=== PATIENT | male | born 1975 | race American Indian/Alaskan Native ===

== ENCOUNTER 2017-08-15 10:01 | Emergency (ER) | payer OTHER ==
[2017-08-15] MEDS ORDERED: ASPIRIN PO ONE (10:12)
[2017-08-15 10:52] LABS: Basophils # (Auto) 0.1 K/mm3 (0.0-0.1); Eosinophils # (Auto) 0.1 K/mm3 (0.0-0.4); Eosinophils % (Auto) 1.1 % (0.0-4.3); Hematocrit 46.1 % (35.5-45.6); Hemoglobin 15.4 gm/dl (11.8-15.2); Lymphocytes # (Auto) 2.8 K/mm3 (1.2-5.4); Lymphocytes % (Auto) 36.7 % (13.4-35.0); Mean Corpuscular HGB Conc 33 % (32-34); Mean Corpuscular Hemoglobin 28 pg (28-32); Mean Corpuscular Volume 85 fl (84-94); Monocytes # (Auto) 0.7 K/mm3 (0.0-0.8); Monocytes % (Auto) 8.9 % (0.0-7.3); Platelet Count 250 K/mm3 (140-440); Red Blood Count 5.41 M/mm3 (3.65-5.03); Red Cell Distribution Width 13.3 % (13.2-15.2)
[2017-08-15 11:09] LABS: BUN/Creatinine Ratio 14; Blood Urea Nitrogen 10 mg/dL (9-20); Hemolysis Index 24
[2017-08-15] MEDS ORDERED: ASPIRIN ONE (13:24)
[2017-08-15 17:33] VITALS: BP 126/75
--- NOTE | 2017-08-15 17:54 | Emergency Department Report ---
ED Chest Pain HPI - General Chief Complaint: Chest Pain Stated Complaint: CHEST PAIN/NUMBNESS IN ARMS Time Seen by Provider: 08/15/17 17:24 Source: patient Mode of arrival: Ambulatory Limitations: No Limitations - History of Present Illness Initial Comments: 41-year-old male type II diabetic here with complaint of chest pain ,blurred vision, and left arm numbness. Mr. Mims symptoms began 2 days ago and are intermittent. The chest pain is left side is chest pain at the apex of his heart. It usually lasts 3-4 hours and then goes away. At this time he has no chest pain. Mr. Mims was diagnosed with type 2 diabetes 3 months ago and was prescribed metformin. He has not taken any of the metformin. His current fingerstick is 305. He is a cigarette smoker. MD Complaint: chest pain -: days(s) (2 days) Onset: during rest Pain Radiation: LUE Severity: moderate Severity scale (0 -10): 9 Quality: tightness, heaviness Consistency: intermittent (lasting 3-4 hours) Improves With: rest Other Symptoms: other (left arm numbness) Treatments Prior to Arrival: none Aspirin use within the Past 7 Days: (0) No - Related Data On Oral Contraceptives: No Home Medications Medication Instructions Recorded Confirmed Last Taken No Known Home Medications [No 08/15/17 08/15/17 Unknown Reported Home Medications] Allergies Allergy/AdvReac Type Severity Reaction Status Date / Time No Known Allergies Allergy Unverified 07/08/13 12:01 Heart Score - HEART Score History: Slightly suspicious EKG: Normal Age: < 45 Risk factors: 1-2 risk factors Troponin: < normal limit HEART Score: 1 ED Review of Systems ROS: Stated complaint: CHEST PAIN/NUMBNESS IN ARMS Other details as noted in HPI Constitutional: denies: chills, fever Eyes: denies: eye pain, eye discharge, vision change ENT: denies: ear pain, throat pain Respiratory: denies: cough, shortness of breath, wheezing Cardiovascular: denies: palpitations Endocrine: no symptoms reported Gastrointestinal: denies: abdominal pain, nausea, diarrhea Genitourinary: denies: urgency, dysuria Musculoskeletal: denies: back pain, joint swelling, arthralgia Skin: denies: rash, lesions Neurological: numbness (left arm), other (blurred vision). denies: headache, weakness, paresthesias Psychiatric: denies: anxiety, depression Hematological/Lymphatic: denies: easy bleeding, easy bruising ED Past Medical Hx - Past Medical History Previous Medical History?: Yes Hx Diabetes: Yes Additional medical history: tobacco abuse - Surgical History Past Surgical History?: No - Social History Smoking Status: Current Every Day Smoker Substance Use Type: None - Medications Home Medications: Home Medications Medication Instructions Recorded Confirmed Last Taken Type No Known Home Medications [No 08/15/17 08/15/17 Unknown History Reported Home Medications] ED Physical Exam - General Limitations: No Limitations General appearance: alert, in no apparent distress - Head Head exam: Present: atraumatic, normocephalic - Eye Eye exam: Present: normal appearance, EOMI - ENT ENT exam: Present: mucous membranes moist - Neck Neck exam: Present: normal inspection, full ROM - Respiratory Respiratory exam: Present: normal lung sounds bilaterally. Absent: respiratory distress, wheezes, rales, rhonchi - Cardiovascular Cardiovascular Exam: Present: regular rate, normal rhythm, normal heart sounds. Absent: systolic murmur, diastolic murmur, rubs, gallop - GI/Abdominal GI/Abdominal exam: Present: soft, normal bowel sounds - Rectal Rectal exam: Present: deferred - Extremities Exam Extremities exam: Present: normal inspection, full ROM, normal capillary refill - Back Exam Back exam: Present: normal inspection, full ROM - Neurological Exam Neurological exam: Present: alert, oriented X3, CN II-XII intact, other (large centripital fat) - Psychiatric Psychiatric exam: Present: normal affect, normal mood - Skin Skin exam: Present: warm, dry, intact, normal color. Absent: rash ED Course Vital Signs 08/15/17 08/15/17 08/15/17 10:10 13:15 13:27 Temperature 97.8 F Pulse Rate 83 78 78 Respiratory 16 16 Rate Blood Pressure 121/71 O2 Sat by Pulse 100 Oximetry 08/15/17 08/15/17 08/15/17 13:30 14:00 14:31 Temperature Pulse Rate 74 73 78 Respiratory 23 26 H 13 Rate Blood Pressure 117/81 121/73 121/73 O2 Sat by Pulse 100 100 100 Oximetry 08/15/17 08/15/17 08/15/17 15:01 15:30 16:00 Temperature Pulse Rate 75 70 68 Respiratory 18 25 H 21 Rate Blood Pressure 121/73 116/72 117/72 O2 Sat by Pulse 96 99 95 Oximetry 08/15/17 08/15/17 08/15/17 16:30 17:00 17:30 Temperature Pulse Rate 63 66 66 Respiratory 23 19 22 Rate Blood Pressure 120/74 127/74 126/75 O2 Sat by Pulse 98 92 97 Oximetry - Reevaluation(s) Reevaluation #1: 08/16/17 03:35 Patient eloped from the department after discussion was made about admitting to the hospital. He left with an IV in his arm and the police was called. ED Medical Decision Making - Lab Data Result diagrams: 08/15/17 10:20 08/15/17 10:20 - EKG Data -: EKG Interpreted by Me EKG shows normal: sinus rhythm, axis, intervals, QRS complexes - EKG Data Interpretation: nonspecific ST-T wave felipe Critical care attestation.: If time is entered above; I have spent that time in minutes in the direct care of this critically ill patient, excluding procedure time. 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
== END 2017-08-15 18:06 | disposition left against medical advice (07) ==
LOC: ED 10:01
DX: R07.9 Chest pain, unspecified (principal); E11.65 Type 2 diabetes mellitus with hyperglycemia; F17.200 Nicotine dependence, unspecified, uncomplicated
CPT/HCPCS: 36415; 80048; 82962; 84484; 85025; 93005; 93010; 99284

== ENCOUNTER 2017-12-27 12:32 | Emergency (ER) | payer OTHER ==
--- NOTE | 2017-12-27 13:14 | Emergency Department Report ---
ED Male HPI - General Chief complaint: Urogenital-Male Stated complaint: GROIN PAIN Time Seen by Provider: 12/27/17 13:09 Source: patient Mode of arrival: Ambulatory Limitations: No Limitations - History of Present Illness Initial comments: Patient is 42 years old male with no significant past medical history presented to the ER complaining of dysuria and urinary frequency. Patient denied any hematuria. Patient said that he is not sexually active. Patient denied any fever or nausea or vomiting. MD Complaint: dysuria -: Gradual Consistency: constant Improves with: urination - Related Data Home Medications Medication Instructions Recorded Confirmed Last Taken No Known Home Medications [No 08/15/17 08/15/17 Unknown Reported Home Medications] Allergies Allergy/AdvReac Type Severity Reaction Status Date / Time No Known Allergies Allergy Unverified 07/08/13 12:01 ED Review of Systems ROS: Stated complaint: GROIN PAIN Other details as noted in HPI Comment: All other systems reviewed and negative Respiratory: denies: cough, orthopnea Cardiovascular: denies: chest pain, palpitations, dyspnea on exertion Genitourinary: urgency, dysuria, frequency. denies: hematuria, discharge, testicular pain, testicular mass, other Musculoskeletal: denies: back pain Neurological: denies: headache, weakness ED Past Medical Hx - Past Medical History Previous Medical History?: Yes Hx Diabetes: Yes (non compliant with meds and BS) Additional medical history: tobacco abuse - Surgical History Past Surgical History?: No - Social History Smoking Status: Current Every Day Smoker Substance Use Type: Prescribed - Medications Home Medications: Home Medications Medication Instructions Recorded Confirmed Last Taken Type No Known Home Medications [No 08/15/17 08/15/17 Unknown History Reported Home Medications] ED Physical Exam - General Limitations: No Limitations General appearance: alert, in no apparent distress - Head Head exam: Present: atraumatic, normocephalic, normal inspection - Eye Eye exam: Present: normal appearance - ENT ENT exam: Present: normal exam - Neck Neck exam: Present: normal inspection, full ROM. Absent: tenderness, meningismus - Respiratory Respiratory exam: Present: normal lung sounds bilaterally. Absent: chest wall tenderness - Cardiovascular Cardiovascular Exam: Present: regular rate, normal rhythm, normal heart sounds - GI/Abdominal GI/Abdominal exam: Present: soft, normal bowel sounds. Absent: distended, tenderness, guarding, rebound, rigid, organomegaly, mass, bruit, pulsatile mass , hernia - Extremities Exam Extremities exam: Present: normal inspection, full ROM, normal capillary refill - Back Exam Back exam: Present: normal inspection, full ROM. Absent: CVA tenderness (L) - Neurological Exam Neurological exam: Present: alert, oriented X3, CN II-XII intact, normal gait - Skin Skin exam: Present: warm, intact, normal color ED Course Vital Signs 12/27/17 12:44 Temperature 98.8 F Pulse Rate 87 Respiratory 20 Rate Blood Pressure 163/98 O2 Sat by Pulse 98 Oximetry Critical care attestation.: If time is entered above; I have spent that time in minutes in the direct care of this critically ill patient, excluding procedure time. ED Disposition Clinical Impression: Prostatitis Disposition: DC-01 TO HOME OR SELFCARE Is pt being admited?: No Condition: Stable Instructions: Prostatitis (ED)
[2017-12-27 13:39] LABS: Bilirubin,Urine NEG (Negative); Blood,Urine NEG (Negative); Color,Urine Yellow (Yellow); Mucus,Urine FEW /HPF; Urobilinogen,Urine < 2.0 mg/dL (<2.0)
[2017-12-27 14:20] VITALS: BP 160/90
== END 2017-12-27 14:19 | disposition home or self-care (01) ==
LOC: ED 12:32
DX: N41.9 Inflammatory disease of prostate, unspecified (principal); E11.9 Type 2 diabetes mellitus without complications; F17.200 Nicotine dependence, unspecified, uncomplicated
CPT/HCPCS: 81001; 99283

== ENCOUNTER 2018-01-19 10:29 | Emergency (ER) | payer OTHER ==
--- NOTE | 2018-01-19 11:34 | XRay Report ---
RIGHT SHOULDER, 3 VIEWS: HISTORY: right shoulder pain. Normal bone mineralization. [id number] osteoarthritic changes identified at the acromioclavicular joint and glenohumeral joint. There is no evidence for acute injury, fracture, dislocation or ligamentous injury. The humeral head is slightly low lying with respect to the glenoid which could represent a right shoulder effusion. IMPRESSION: No evidence for acute injury. Osteoarthritic changes. Questionable joint effusion.
--- NOTE | 2018-01-19 12:31 | Emergency Department Report ---
ED General Adult HPI - General Chief complaint: Extremity Injury, Upper Stated complaint: RIGHT SHOULDER PAIN AND EYES BLURRY Time Seen by Provider: 01/19/18 12:18 Source: patient, family Mode of arrival: Ambulatory Limitations: No Limitations - History of Present Illness Initial comments: Mr. Mims is a 42 yo who presents with 2 concerns. He has a right shoulder pain for 1 week. 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 He also has had mild intermittent blurry vision which he attributes to hypoglycemia. He states that he takes metformin which is not managing his diabetes any longer. - Related Data Previous Rx's Medication Instructions Recorded Last Taken Type Ciprofloxacin HCl [Ciprofloxacin 500 mg PO Q12H #20 tab 12/27/17 Unknown Rx TAB] Naproxen [Naprosyn] 500 mg PO BID #14 tablet 12/27/17 Unknown Rx Ibuprofen 400 mg PO QID 5 Days #20 tablet 01/19/18 Unknown Rx Allergies Allergy/AdvReac Type Severity Reaction Status Date / Time No Known Allergies Allergy Unverified 07/08/13 12:01 ED Review of Systems ROS: Stated complaint: RIGHT SHOULDER PAIN AND EYES BLURRY Other details as noted in HPI Comment: All other systems reviewed and negative Constitutional: denies: fever, malaise Respiratory: denies: cough Cardiovascular: denies: chest pain ED Past Medical Hx - Past Medical History Hx Diabetes: Yes (non compliant with meds and BS) Additional medical history: tobacco abuse - Surgical History Past Surgical History?: No - Social History Smoking Status: Current Every Day Smoker Substance Use Type: None - Medications Home Medications: Home Medications Medication Instructions Recorded Confirmed Last Taken Type Ciprofloxacin HCl [Ciprofloxacin 500 mg PO Q12H #20 tab 12/27/17 Unknown Rx TAB] Naproxen [Naprosyn] 500 mg PO BID #14 tablet 12/27/17 Unknown Rx Ibuprofen 400 mg PO QID 5 Days #20 tablet 01/19/18 Unknown Rx ED Physical Exam - General Limitations: No Limitations General appearance: alert, in no apparent distress - Head Head exam: Present: atraumatic, normocephalic - Eye Eye exam: Present: normal appearance. Absent: scleral icterus, conjunctival injection Pupils: Present: normal accommodation - ENT ENT exam: Present: normal exam - Neck Neck exam: Present: normal inspection - Respiratory Respiratory exam: Present: normal lung sounds bilaterally. Absent: respiratory distress, wheezes, rales, rhonchi - Cardiovascular Cardiovascular Exam: Present: regular rate, normal rhythm, normal heart sounds. Absent: bradycardia, tachycardia - GI/Abdominal GI/Abdominal exam: Present: soft. Absent: distended, tenderness, guarding, rebound - Extremities Exam Extremities exam: Present: full ROM. Absent: tenderness - Neurological Exam Neurological exam: Present: alert, oriented X3 - Psychiatric Psychiatric exam: Present: normal affect, normal mood - Skin Skin exam: Present: warm, dry, intact, normal color - Other Other exam information: Right shoulder: No tenderness no warmth full range of motion ED Course Vital Signs 01/19/18 10:56 Temperature 98.8 F Pulse Rate 97 H Respiratory 20 Rate Blood Pressure 156/100 O2 Sat by Pulse 100 Oximetry ED Medical Decision Making - Medical Decision Making 1. right shoulder osteoarthritis presents according to radiology report of shoulder radiograph rx: ibuprofen 2. 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 ED Disposition Clinical Impression: Osteoarthritis of right shoulder, Blurry vision, bilateral, Diabetes mellitus Disposition: DC-01 TO HOME OR SELFCARE Is pt being admited?: No Does the pt Need Aspirin: No Condition: Stable Instructions: Osteoarthritis (ED), Blurred Vision (ED) Prescriptions: Ibuprofen 400 mg PO QID 5 Days #20 tablet Forms: Work/School Release Form(ED) Time of Disposition: 12:33
[2018-01-19 12:39] VITALS: BP 156/76
== END 2018-01-19 12:37 | disposition home or self-care (01) ==
LOC: ED 10:29
DX: M25.511 Pain in right shoulder (principal); E11.649 Type 2 diabetes mellitus with hypoglycemia without coma; F17.200 Nicotine dependence, unspecified, uncomplicated
CPT/HCPCS: 82962; 99284

== ENCOUNTER 2018-05-20 12:58 | Emergency (ER) | payer SELFPAY ==
[2018-05-20 13:05] VITALS: BP 128/76
[2018-05-20] MEDS ORDERED: BICILLIN L-A IM ONE (13:27)
--- NOTE | 2018-05-20 13:32 | Emergency Department Report ---
- General Chief Complaint: Upper Respiratory Infection Stated Complaint: CHEST PAIN/BODY ACHE Time Seen by Provider: 05/20/18 13:23 Source: patient Mode of arrival: Ambulatory Limitations: No Limitations - History of Present Illness Initial Comments: Hx of T2DM, taking metformin, followed at [facility] MD Complaint: fever, cough, sore throat, rhinorrhea, nasal congestion, sinus pain -: Gradual, week(s) (1) Severity: mild Improves With: OTC cold medicine Associated Symptoms: fever, chills, myalgias, rhinorrhea, nasal congestion, cough, chest pain (mild chest pain with cough) - Related Data Previous Rx's Medication Instructions Recorded Last Taken Type Ciprofloxacin HCl [Ciprofloxacin 500 mg PO Q12H #20 tab 12/27/17 Unknown Rx TAB] Naproxen [Naprosyn] 500 mg PO BID #14 tablet 12/27/17 Unknown Rx Ibuprofen 400 mg PO QID 5 Days #20 tablet 01/19/18 Unknown Rx Allergies Allergy/AdvReac Type Severity Reaction Status Date / Time No Known Allergies Allergy Unverified 07/08/13 12:01 ED Review of Systems ROS: Stated complaint: CHEST PAIN/BODY ACHE Other details as noted in HPI Constitutional: fever, malaise ENT: throat pain Respiratory: cough Gastrointestinal: denies: abdominal pain Neurological: denies: headache ED Past Medical Hx - Past Medical History Hx Diabetes: Yes (non compliant with meds and BS) Additional medical history: tobacco abuse - Surgical History Past Surgical History?: No - Social History Smoking Status: Current Every Day Smoker Substance Use Type: None - Medications Home Medications: Home Medications Medication Instructions Recorded Confirmed Last Taken Type Ciprofloxacin HCl [Ciprofloxacin 500 mg PO Q12H #20 tab 12/27/17 Unknown Rx TAB] Naproxen [Naprosyn] 500 mg PO BID #14 tablet 12/27/17 Unknown Rx Ibuprofen 400 mg PO QID 5 Days #20 tablet 01/19/18 Unknown Rx ED Physical Exam - General Limitations: No Limitations General appearance: alert, in no apparent distress - Head Head exam: Present: atraumatic, normocephalic - Eye Eye exam: Present: normal appearance. Absent: scleral icterus, conjunctival injection - ENT ENT exam: Present: other (erythematous edematous tonsils no exudate touching uvula) - Neck Neck exam: Present: normal inspection - Respiratory Respiratory exam: Present: normal lung sounds bilaterally. Absent: respiratory distress, wheezes, rales, rhonchi - Cardiovascular Cardiovascular Exam: Present: regular rate, normal rhythm, normal heart sounds. Absent: bradycardia, tachycardia, systolic murmur, diastolic murmur, rubs, gallop - GI/Abdominal GI/Abdominal exam: Present: soft, normal bowel sounds. Absent: distended, tenderness, guarding, rebound - Rectal Rectal exam: Present: deferred - Extremities Exam Extremities exam: Present: normal inspection - Back Exam Back exam: Present: normal inspection - Neurological Exam Neurological exam: Present: alert, oriented X3 - Psychiatric Psychiatric exam: Present: normal affect, normal mood - Skin Skin exam: Present: warm, dry, intact, normal color. Absent: rash ED Course Vital Signs 05/20/18 13:03 Temperature 99.0 F Pulse Rate 86 Respiratory 18 Rate Blood Pressure 128/76 O2 Sat by Pulse 98 Oximetry ED Medical Decision Making - Medical Decision Making acute pharyngitis, generalized symptoms: DDX: influenza vs streptococcal pharyngitis given bicllin LA in the ED dc'd home, given OTC medication recommendations Critical care attestation.: If time is entered above; I have spent that time in minutes in the direct care of this critically ill patient, excluding procedure time. ED Disposition Clinical Impression: Acute pharyngitis Disposition: DC- TO HOME OR SELFCARE Is pt being admited?: No Does the pt Need Aspirin: No Condition: Stable Instructions: Pharyngitis (ED) Referrals: [facility] [Outside] - 3-5 Days
== END 2018-05-20 14:12 | disposition home or self-care (01) ==
LOC: ED 12:58
DX: J20.9 Acute bronchitis, unspecified (principal); E11.9 Type 2 diabetes mellitus without complications; F17.200 Nicotine dependence, unspecified, uncomplicated; Z72.0 Tobacco use
CPT/HCPCS: 96372; 99282; J0561

== ENCOUNTER 2019-02-15 07:17 | Emergency (ER) | payer SELFPAY ==
[2019-02-15 07:53] LABS: Basophils # (Auto) 0.1 K/mm3 (0.0-0.1); Basophils % (Auto) 1.1 % (0.0-1.8); Eosinophils % (Auto) 0.4 % (0.0-4.3); Hematocrit 43.3 % (35.5-45.6); Hemoglobin 14.8 gm/dl (11.8-15.2); Lymphocytes % (Auto) 35.4 % (13.4-35.0); Mean Corpuscular HGB Conc 34 % (32-34); Mean Corpuscular Volume 86 fl (84-94); Monocytes # (Auto) 0.9 K/mm3 (0.0-0.8); Monocytes % (Auto) 10.3 % (0.0-7.3); Platelet Count 224 K/mm3 (140-440); Red Blood Count 5.06 M/mm3 (3.65-5.03); Red Cell Distribution Width 13.2 % (13.2-15.2)
--- NOTE | 2019-02-15 07:57 | XRay Report ---
CHEST 1 VIEW INDICATION / CLINICAL INFORMATION: Chest Pain. COMPARISON: None available. FINDINGS: SUPPORT DEVICES: None. HEART / MEDIASTINUM: No significant abnormality. LUNGS / PLEURA: No significant pulmonary or pleural abnormality. No pneumothorax. ADDITIONAL FINDINGS: No significant additional findings. IMPRESSION: 1. No acute findings. Signer Name: Konstantin Curiel MD Signed: 02/15/2019 7:53 AM Workstation Name: [id number]
[2019-02-15 08:07] LABS: BUN/Creatinine Ratio 20; Blood Urea Nitrogen 16 mg/dL (9-20); Calcium 9.5 mg/dL (8.4-10.2); Hemolysis Index 11
[2019-02-15] MEDS ORDERED: NITRO-BID 2% TP ONE (08:44)
--- NOTE | 2019-02-15 08:46 | Emergency Department Report ---
ED General Adult HPI - General Chief complaint: Chest Pain Stated complaint: CHEST PAIN Time Seen by Provider: 02/15/19 08:33 Source: patient, EMS Mode of arrival: Stretcher Limitations: No Limitations - History of Present Illness Initial comments: The patient presents to the emergency department with a chief complaint of chest pain. The patient complains of left-sided chest pain that he describes as pressure that started this morning. She denies radiation of his chest pain. Patient states he has had a negative cardiac workup at [place] in the last 2 years. Patient was chest pain-free upon arrival to the ED -: Sudden Location: chest Radiation: non-radiation Severity scale (0 -10): 5 Quality: other (pressure) Consistency: constant Improves with: none Worsens with: none Associated Symptoms: denies other symptoms Treatments Prior to Arrival: none - Related Data Previous Rx's Medication Instructions Recorded Last Taken Type metFORMIN [Glucophage] 500 mg PO BID #60 tablet 03/15/17 Unknown Rx AtorvaSTATin [Lipitor] 20 mg PO QHS #30 tablet 04/16/18 Unknown Rx Pantoprazole [Protonix TAB] 40 mg PO QDAY #30 tablet 04/16/18 Unknown Rx Ibuprofen [Motrin 800 MG tab] 800 mg PO Q8HR PRN #10 tablet 05/04/18 Unknown Rx Nicotine [Habitrol] 21 mg TD QDAY #30 patch 06/09/18 Unknown Rx Allergies Allergy/AdvReac Type Severity Reaction Status Date / Time No Known Allergies Allergy Unverified 06/09/18 08:36 ED Review of Systems ROS: Stated complaint: CHEST PAIN Other details as noted in HPI Comment: All other systems reviewed and negative Constitutional: denies: chills, fever Eyes: denies: eye pain, eye discharge, vision change ENT: denies: ear pain, throat pain Respiratory: denies: cough, shortness of breath, wheezing Cardiovascular: chest pain. denies: palpitations Endocrine: no symptoms reported Gastrointestinal: denies: abdominal pain, nausea, diarrhea Genitourinary: denies: urgency, dysuria Musculoskeletal: denies: back pain, joint swelling, arthralgia Skin: denies: rash, lesions Neurological: denies: headache, weakness, paresthesias Psychiatric: denies: anxiety, depression Hematological/Lymphatic: denies: easy bleeding, easy bruising ED Past Medical Hx - Past Medical History Previous Medical History?: Yes Hx Congestive Heart Failure: No Hx Diabetes: Yes Hx Asthma: No Hx COPD: No Hx HIV: No Additional medical history: back - Social History Smoking Status: Current Every Day Smoker Substance Use Type: None - Medications Home Medications: Home Medications Medication Instructions Recorded Confirmed Last Taken Type metFORMIN [Glucophage] 500 mg PO BID #60 tablet 03/15/17 04/15/18 Unknown Rx AtorvaSTATin [Lipitor] 20 mg PO QHS #30 tablet 04/16/18 Unknown Rx Pantoprazole [Protonix TAB] 40 mg PO QDAY #30 tablet 04/16/18 Unknown Rx Ibuprofen [Motrin 800 MG tab] 800 mg PO Q8HR PRN #10 tablet 05/04/18 Unknown Rx Nicotine [Habitrol] 21 mg TD QDAY #30 patch 06/09/18 Unknown Rx ED Physical Exam - General Limitations: No Limitations General appearance: alert, in no apparent distress - Head Head exam: Present: atraumatic, normocephalic - Eye Eye exam: Present: normal appearance, PERRL, EOMI - ENT ENT exam: Present: mucous membranes moist - Neck Neck exam: Present: normal inspection - Respiratory Respiratory exam: Present: normal lung sounds bilaterally. Absent: respiratory distress - Cardiovascular Cardiovascular Exam: Present: regular rate, normal rhythm. Absent: systolic murmur, diastolic murmur, rubs, gallop - GI/Abdominal GI/Abdominal exam: Present: soft, normal bowel sounds. Absent: distended, tenderness - Rectal Rectal exam: Present: deferred - Extremities Exam Extremities exam: Present: normal inspection - Back Exam Back exam: Present: normal inspection - Neurological Exam Neurological exam: Present: alert, oriented X3, CN II-XII intact. Absent: motor sensory deficit - Psychiatric Psychiatric exam: Present: normal affect, normal mood - Skin Skin exam: Present: warm, dry, intact, normal color. Absent: rash ED Course Vital Signs 02/15/19 02/15/19 07:27 09:15 Temperature 98.5 F Pulse Rate 99 H 84 Respiratory 15 Rate Blood Pressure 131/82 128/68 O2 Sat by Pulse 99 Oximetry ED Medical Decision Making - Lab Data Result diagrams: 02/15/19 07:42 02/15/19 07:42 - EKG Data -: EKG Interpreted by Fl EKG shows normal: sinus rhythm Rate: normal - EKG Data Interpretation: nonspecific ST-T wave felipe - Medical Decision Making Discussed plan of care with patient Patient will follow up with cardiology as outpatient. The chest pain protocol Patient's heart score score is a 2( HTN,EKG) Critical care attestation.: If time is entered above; I have spent that time in minutes in the direct care of this critically ill patient, excluding procedure time. ED Disposition Clinical Impression: Nonspecific chest pain Disposition: DC-01 TO HOME OR SELFCARE Is pt being admited?: No Does the pt Need Aspirin: No Condition: Stable Instructions: Chest Pain (ED) Additional Instructions: return if worse Referrals: EDIN RUANOVULCAN MD SUSI [Primary Care Provider] - 3-5 Days JOSE ROBERTS MD [Staff Physician] - 3-5 Days Time of Disposition: 11:49
[2019-02-15 09:12] LABS: Alanine Aminotransferase 10 units/L (7-56); Albumin 4.2 g/dL (3.9-5)
[2019-02-15 09:13] LABS: Bilirubin,Direct < 0.2 mg/dL (0-0.2)
[2019-02-15] MEDS ORDERED: NORCO 10/325 ONE (10:38)
[2019-02-15] MEDS ORDERED: NORCO 10/325 PO ONE (10:38)
[2019-02-15] MEDS ORDERED: ZOFRAN ODT PO ONE (10:38)
[2019-02-15] MEDS ORDERED: ZOFRAN ODT ONE (10:38)
[2019-02-15 12:02] VITALS: BP 108/62
== END 2019-02-15 12:02 | disposition home or self-care (01) ==
LOC: ED 07:17
DX: R07.89 Other chest pain (principal); E11.9 Type 2 diabetes mellitus without complications; F17.200 Nicotine dependence, unspecified, uncomplicated; Z79.1 Long term (current) use of non-steroidal anti-inflammatories (NSAID); Z79.899 Other long term (current) drug therapy
CPT/HCPCS: 36415; 71045; 80048; 80076; 83690; 83880; 84484; 85025; 93005; 93010; 99284; Q0162

== ENCOUNTER 2019-02-15 21:26 | Emergency (ER) | payer SELFPAY ==
--- NOTE | 2019-02-15 21:47 | Event Note ---
ED Screening Note ED Screening Note: pt was in the ED earlier today for the same sx having left sided chest pain that began this morning never had before states it feels like stabbing/shooting pain no N/V (+) SOB no radiation of the pain PMHx DM, HTN, HLD no cardiac hx mother and father with CAD +smoker non drinker no drug use This initial assessment/diagnostic orders/clinical plan/treatment(s) is/are subject to change based on patients health status, clinical progression and re- assessment by fellow clinical providers in the ED. Further treatment and workup at subsequent clinical providers discretion. Patient/guardian urged not to elope from the ED as their condition may be serious if not clinically assessed and managed. Initial orders include: CP protocol
[2019-02-15 22:39] LABS: Basophils # (Auto) 0.1 K/mm3 (0.0-0.1); Basophils % (Auto) 0.7 % (0.0-1.8); Eosinophils # (Auto) 0.1 K/mm3 (0.0-0.4); Eosinophils % (Auto) 1.9 % (0.0-4.3); Hematocrit 47.5 % (35.5-45.6); Lymphocytes # (Auto) 3.2 K/mm3 (1.2-5.4); Lymphocytes % (Auto) 43.5 % (13.4-35.0); Mean Corpuscular HGB Conc 34 % (32-34); Mean Corpuscular Volume 86 fl (84-94); Monocytes # (Auto) 0.7 K/mm3 (0.0-0.8); Monocytes % (Auto) 9.7 % (0.0-7.3); Platelet Count 229 K/mm3 (140-440); Red Cell Distribution Width 13.7 % (13.2-15.2)
[2019-02-15 22:50] LABS: INR 1.01 (0.87-1.13)
[2019-02-15 22:51] LABS: Partial Thromboplastin Time 28.3 Sec. (24.2-36.6)
[2019-02-15 23:17] LABS: Alanine Aminotransferase 10 units/L (7-56); Albumin 4.7 g/dL (3.9-5); BUN/Creatinine Ratio 19; Blood Urea Nitrogen 15 mg/dL (9-20); Calcium 10.2 mg/dL (8.4-10.2); Hemolysis Index 3
[2019-02-15] MEDS ORDERED: TORADOL IM ONE (23:36)
--- NOTE | 2019-02-15 23:42 | Emergency Department Report ---
ED Chest Pain HPI - General Chief Complaint: Chest Pain Stated Complaint: CHEST PAIN,LIGHT HEADNESS Time Seen by Provider: 02/15/19 21:44 Source: patient Mode of arrival: Ambulatory Limitations: No Limitations - History of Present Illness Initial Comments: Patient is 43 years old male with history of diabetes. Patient presented to the ER complaining of left-sided chest pain, sharp in nature with no radiation. Patient stated that pain increases with movement and decrease with remaining still. Patient denied any shortness of breath, fever or chills. Patient was seen here earlier for the same complaint. Charts reviewed with 2 negative troponin and a negative chest x-ray. MD Complaint: chest pain -: This morning Onset: during rest Pain Location: left chest Severity: moderate Severity scale (0 -10): 5 Quality: sharp Consistency: intermittent Improves With: remaining still Worsens With: movement - Related Data Previous Rx's Medication Instructions Recorded Last Taken Type metFORMIN [Glucophage] 500 mg PO BID #60 tablet 03/15/17 Unknown Rx AtorvaSTATin [Lipitor] 20 mg PO QHS #30 tablet 04/16/18 Unknown Rx Pantoprazole [Protonix TAB] 40 mg PO QDAY #30 tablet 04/16/18 Unknown Rx Ibuprofen [Motrin 800 MG tab] 800 mg PO Q8HR PRN #10 tablet 05/04/18 Unknown Rx Nicotine [Habitrol] 21 mg TD QDAY #30 patch 06/09/18 Unknown Rx Allergies Allergy/AdvReac Type Severity Reaction Status Date / Time No Known Allergies Allergy Unverified 06/09/18 08:36 Heart Score - HEART Score History: Slightly suspicious EKG: Normal Age: < 45 Risk factors: 1-2 risk factors Troponin: < normal limit HEART Score: 1 - Critical Actions Critical Actions: 0-3 pts:0.9-1.7%risk of adverse cardiac event.Candidate for discharge ED Review of Systems ROS: Stated complaint: CHEST PAIN,LIGHT HEADNESS Other details as noted in HPI Comment: All other systems reviewed and negative Constitutional: denies: chills, fever Respiratory: denies: cough, orthopnea, shortness of breath, SOB with exertion Cardiovascular: chest pain. denies: palpitations Gastrointestinal: denies: abdominal pain, nausea, vomiting, diarrhea, constipation Musculoskeletal: denies: back pain ED Past Medical Hx - Past Medical History Previous Medical History?: Yes Hx Hypertension: Yes Hx Congestive Heart Failure: No Hx Diabetes: Yes Hx Asthma: No Hx COPD: No Hx HIV: No Additional medical history: High Cholesterol - Surgical History Past Surgical History?: No - Social History Smoking Status: Current Every Day Smoker Substance Use Type: None - Medications Home Medications: Home Medications Medication Instructions Recorded Confirmed Last Taken Type metFORMIN [Glucophage] 500 mg PO BID #60 tablet 03/15/17 04/15/18 Unknown Rx AtorvaSTATin [Lipitor] 20 mg PO QHS #30 tablet 04/16/18 Unknown Rx Pantoprazole [Protonix TAB] 40 mg PO QDAY #30 tablet 04/16/18 Unknown Rx Ibuprofen [Motrin 800 MG tab] 800 mg PO Q8HR PRN #10 tablet 05/04/18 Unknown Rx Nicotine [Habitrol] 21 mg TD QDAY #30 patch 06/09/18 Unknown Rx ED Physical Exam - General Limitations: No Limitations General appearance: alert, in no apparent distress - Head Head exam: Present: atraumatic, normocephalic, normal inspection - Eye Eye exam: Present: normal appearance, PERRL - ENT ENT exam: Present: normal exam, normal orophraynx, mucous membranes moist - Neck Neck exam: Present: normal inspection, full ROM. Absent: tenderness, meningismus, lymphadenopathy, thyromegaly - Respiratory Respiratory exam: Present: normal lung sounds bilaterally, chest wall tenderness (left upper chest). Absent: respiratory distress, wheezes, rales, rhonchi, accessory muscle use, decreased breath sounds, prolonged expiratory - Cardiovascular Cardiovascular Exam: Present: regular rate, normal rhythm, normal heart sounds - GI/Abdominal GI/Abdominal exam: Present: soft, normal bowel sounds. Absent: distended, tenderness, guarding, rebound, rigid, organomegaly, mass, bruit, pulsatile mass, hernia - Extremities Exam Extremities exam: Present: normal inspection, full ROM, normal capillary refill - Back Exam Back exam: Present: normal inspection, full ROM. Absent: tenderness, CVA tenderness (R), CVA tenderness (L), muscle spasm, paraspinal tenderness, vertebral tenderness - Neurological Exam Neurological exam: Present: alert, oriented X3, CN II-XII intact, normal gait, reflexes normal - Psychiatric Psychiatric exam: Present: normal mood - Skin Skin exam: Present: warm, intact, normal color ED Course Vital Signs 02/15/19 21:45 Temperature 98.2 F Pulse Rate 83 Respiratory 18 Rate Blood Pressure 134/79 O2 Sat by Pulse 98 Oximetry SHENA score - Shena Score Age > 65: (0) No Aspirin use within the Past 7 Days: (1) Yes 3 or more CAD Risk Factors: (1) Yes 2 or more Angina events in past 24 hrs: (0) No Known CAD with more than 50% Stenosis: (0) No Elevated Cardiac Markers: (0) No ST Deviation Greater than 0.5mm: (0) No SHENA Score: 2 ED Medical Decision Making - Lab Data Result diagrams: 02/15/19 21:55 02/15/19 21:55 - EKG Data -: EKG Interpreted by De EKG shows normal: sinus rhythm Rate: normal - EKG Data Interpretation: no acute changes - Radiology Data Radiology results: report reviewed Chest x-ray is unremarkable. - Medical Decision Making Patient is 43 years old male with history of diabetes. Patient presented to the ER complaining of left-sided chest pain, sharp in nature with no radiation. Patient stated that pain increases with movement and decrease with remaining still. Patient denied any shortness of breath, fever or chills. Patient was seen here earlier for the same complaint. Charts reviewed with 2 negative troponin and a negative chest x-ray. EKG is negative for STEMI, chest x-ray is unremarkable. Troponins negative. Patient chest pain is reproducible consistent with costochondritis. Patient had a negative stress test last year. Patient received Toradol 60 IM and prescribed Naprosyn 500 mg twice a day for 7 days and advised to take with food. Patient advised to follow-up with his primary care physician in the next 2-3 days and to return to the ER if he develop any new symptoms. Critical care attestation.: If time is entered above; I have spent that time in minutes in the direct care of this critically ill patient, excluding procedure time. ED Disposition Clinical Impression: Chest pain, Costochondritis, acute Disposition: DC-01 TO HOME OR SELFCARE Is pt being admited?: No Condition: Stable Instructions: Chest Pain (ED), Costochondritis (ED) Referrals: [facility] [Provider Group] - 3-5 Days
[2019-02-16 01:10] VITALS: BP 139/64
== END 2019-02-16 00:15 | disposition home or self-care (01) ==
LOC: ED 21:26
DX: M94.0 Chondrocostal junction syndrome [Tietze] (principal); I10 Essential (primary) hypertension; E11.9 Type 2 diabetes mellitus without complications; E78.00 Pure hypercholesterolemia, unspecified; F17.200 Nicotine dependence, unspecified, uncomplicated; Z79.899 Other long term (current) drug therapy
CPT/HCPCS: 36415; 80053; 83690; 83880; 84484; 85025; 85379; 85610; 85730; 93005; 93010; 96372; 99283; J1885

== ENCOUNTER 2019-02-16 02:59 | Emergency (ER) | payer SELFPAY ==
[2019-02-16 03:04] VITALS: BP 135/84
--- NOTE | 2019-02-16 03:39 | XRay Report ---
RIGHT ANKLE, 3 VIEWS 02/16/2019 INDICATION / CLINICAL INFORMATION: right ankle injury. COMPARISON: None available. FINDINGS: No fracture or dislocation. No soft tissue abnormalities. Signer Name: Konstantin Curiel MD Signed: 02/16/2019 3:35 AM Workstation Name: [id number]
[2019-02-16] MEDS ORDERED: ULTRAM PO ONE (04:22)
--- NOTE | 2019-02-16 04:24 | Emergency Department Report ---
ED Lower Extremity HPI - General Chief Complaint: Extremity Injury, Lower Stated Complaint: RIGHT ANKLE PAIN Time Seen by Provider: 02/16/19 04:17 Source: patient Mode of arrival: Ambulatory Limitations: No Limitations - History of Present Illness Initial Comments: pt is a 43 y/o aam who presents for right ankle pain and swelling state he twisted his ankle walking outsid on sidewalk pt remains ambulatory with steady gait. MD Complaint: ankle injury Onset/Timin -: hour(s) Injury: Ankle: Right Type of Injury: hyperextension Place: street/outdoors Severity: moderate Severity scale (0 -10): 4 Improves With: rest Worsens With: weight bearing, movement, palpation Context: walking Associated Symptoms: swelling, ambulatory - Related Data Previous Rx's Medication Instructions Recorded Last Taken Type metFORMIN [Glucophage] 500 mg PO BID #60 tablet 03/15/17 Unknown Rx AtorvaSTATin [Lipitor] 20 mg PO QHS #30 tablet 04/16/18 Unknown Rx Pantoprazole [Protonix TAB] 40 mg PO QDAY #30 tablet 04/16/18 Unknown Rx Ibuprofen [Motrin 800 MG tab] 800 mg PO Q8HR PRN #10 tablet 05/04/18 Unknown Rx Nicotine [Habitrol] 21 mg TD QDAY #30 patch 06/09/18 Unknown Rx Cyclobenzaprine HCl [Flexeril 5 MG 5 mg PO TID PRN #21 tab 02/15/19 Unknown Rx TAB] Naproxen [Naprosyn] 500 mg PO BID #14 tablet 02/15/19 Unknown Rx Cyclobenzaprine [Flexeril] 10 mg PO BID PRN #20 tablet 02/16/19 Unknown Rx Naproxen [Naprosyn TAB] 500 mg PO BID PRN #30 tablet 02/16/19 Unknown Rx Allergies Allergy/AdvReac Type Severity Reaction Status Date / Time No Known Allergies Allergy Unverified 02/16/19 03:04 ED Review of Systems ROS: Stated complaint: RIGHT ANKLE PAIN Other details as noted in HPI Constitutional: denies: chills, fever Eyes: denies: eye pain, eye discharge, vision change ENT: denies: ear pain, throat pain Respiratory: denies: cough, shortness of breath, wheezing Cardiovascular: denies: chest pain, palpitations Endocrine: no symptoms reported Gastrointestinal: denies: abdominal pain, nausea, diarrhea Genitourinary: denies: urgency, dysuria Musculoskeletal: arthralgia. denies: back pain Skin: denies: rash, lesions Neurological: denies: headache, weakness, paresthesias Psychiatric: denies: anxiety, depression Hematological/Lymphatic: denies: easy bleeding, easy bruising ED Past Medical Hx - Past Medical History Previous Medical History?: Yes Hx Hypertension: Yes Hx Congestive Heart Failure: No Hx Diabetes: Yes Hx Asthma: No Hx COPD: No Hx HIV: No Additional medical history: High Cholesterol - Surgical History Past Surgical History?: No - Social History Smoking Status: Current Every Day Smoker Substance Use Type: None - Medications Home Medications: Home Medications Medication Instructions Recorded Confirmed Last Taken Type metFORMIN [Glucophage] 500 mg PO BID #60 tablet 03/15/17 04/15/18 Unknown Rx AtorvaSTATin [Lipitor] 20 mg PO QHS #30 tablet 04/16/18 Unknown Rx Pantoprazole [Protonix TAB] 40 mg PO QDAY #30 tablet 04/16/18 Unknown Rx Ibuprofen [Motrin 800 MG tab] 800 mg PO Q8HR PRN #10 tablet 05/04/18 Unknown Rx Nicotine [Habitrol] 21 mg TD QDAY #30 patch 06/09/18 Unknown Rx Cyclobenzaprine HCl [Flexeril 5 MG 5 mg PO TID PRN #21 tab 02/15/19 Unknown Rx TAB] Naproxen [Naprosyn] 500 mg PO BID #14 tablet 02/15/19 Unknown Rx Cyclobenzaprine [Flexeril] 10 mg PO BID PRN #20 tablet 02/16/19 Unknown Rx Naproxen [Naprosyn TAB] 500 mg PO BID PRN #30 tablet 02/16/19 Unknown Rx ED Physical Exam - General Limitations: No Limitations General appearance: alert, in no apparent distress - Head Head exam: Present: atraumatic, normocephalic - Eye Eye exam: Present: normal appearance, PERRL, EOMI Pupils: Present: normal accommodation - ENT ENT exam: Present: mucous membranes moist - Neck Neck exam: Present: normal inspection, full ROM. Absent: tenderness, meningismus, lymphadenopathy, thyromegaly - Expanded Neck Exam Expanded Neck exam: Absent: tenderness (no posterior vertebral point tenderness ), midline deformity, anterior neck swelling, thyroid mass, carotid bruit, tracheal deviation - Respiratory Respiratory exam: Present: normal lung sounds bilaterally. Absent: respiratory distress, wheezes, stridor, chest wall tenderness - Cardiovascular Cardiovascular Exam: Present: regular rate, normal rhythm, normal heart sounds. Absent: systolic murmur, diastolic murmur, rubs, gallop - GI/Abdominal GI/Abdominal exam: Present: soft, normal bowel sounds. Absent: distended, tenderness, bruit, hernia - Rectal Rectal exam: Present: deferred - Extremities Exam Extremities exam: Present: normal inspection, full ROM, tenderness (right lateral ankle ), normal capillary refill, joint swelling. Absent: pedal edema, calf tenderness - Expanded Lower Extremity Exam Right Ankle exam: Present: full ROM, tenderness (negative melendrez's test ), swelling. Absent: abrasion, laceration, ecchymosis, deformity, crepidus, dislocation, erythema, anterior draw sign Foot/Toe exam: Present: full ROM. Absent: tenderness Neuro vascular tendon exam: Absent: pulse deficit, motor deficit, sensory deficit, tendon deficit Gait: Positive: observed and normal - Back Exam Back exam: Present: normal inspection, full ROM. Absent: tenderness, CVA tenderness (R), CVA tenderness (L), muscle spasm, paraspinal tenderness, vertebral tenderness, rash noted - Neurological Exam Neurological exam: Present: alert, oriented X3, CN II-XII intact, normal gait, reflexes normal. Absent: motor sensory deficit - Expanded Neurological Exam Expanded Patient oriented to: Present: person, place, time Speech: Present: fluid speech Cranial nerves: EOM's Intact: Normal, Gag Reflex: Normal, Tongue Deviation: Normal, Nystagmus: Normal, Facial Sensation: Normal Cerebellar function: Finger to Nose: Normal, Heel to Mcmahon: Normal Upper motor neuron: Matthew Neglect: Normal, Pronator Drift: Normal, Sensory Extinction: Normal Motor strength exam: RUE: 5, LUE: 5, RLE: 5, LLE: 5 DTR: ankle (R): 2+, ankle (L): 2+ Best Eye Response ([place]): (4) open spontaneously Best Motor Response ([place]): (6) obeys commands Best Verbal Response ([place]): (5) oriented Jonathan Total: 15 - Psychiatric Psychiatric exam: Present: normal affect, normal mood - Skin Skin exam: Present: warm, dry, intact, normal color. Absent: rash ED Course Vital Signs 02/16/19 02:59 Temperature 97.4 F L Pulse Rate 81 Respiratory 20 Rate Blood Pressure 135/84 O2 Sat by Pulse 99 Oximetry ED Lower Extremity MDM - Radiology Data Radiology results: report reviewed, image reviewed Ordering Physician: PATRICIA PHILLIPS MD Date of Service: 02/16/19 Procedure(s): XR ankle 3+V RT Accession Number(s): [id number] cc: ED MD JACQUELINE Fluoro Time In Minutes: RIGHT ANKLE, 3 VIEWS 02/16/2019 INDICATION / CLINICAL INFORMATION: right ankle injury. COMPARISON: None available. FINDINGS: No fracture or dislocation. No soft tissue abnormalities. Signer Name: Konstantin Curiel MD Signed: 02/16/2019 3:35 AM Workstation Name: [id number] Transcribed By: COBY Dictated By: Konstantin Curiel MD Electronically Authenticated By: Konstantin Curiel MD Signed Date/Time: 02/16/19334 DD/ 3 TD/TT: - Medical Decision Making xray neg for fracture no soft tissue abnormality plan. nsaids muscle relaxant rice therapy follow up with pcp in 2-3 days return to ed if symptoms worsen. pt verbalized agreement and understanding of discharge plan. Critical care attestation.: If time is entered above; I have spent that time in minutes in the direct care of this critically ill patient, excluding procedure time. ED Disposition Clinical Impression: Right ankle strain Qualifiers: Encounter type: initial encounter Qualified Code(s): S96.911A - Strain of unspecified muscle and tendon at ankle and foot level, right foot, initial encounter Disposition: - TO HOME OR SELFCARE Is pt being admited?: No Does the pt Need Aspirin: No Condition: Stable Instructions: Ankle Exercises (GEN), Ankle Sprain (ED) Prescriptions: Cyclobenzaprine [Flexeril] 10 mg PO BID PRN #20 tablet PRN Reason: Muscle Spasm Naproxen [Naprosyn TAB] 500 mg PO BID PRN #30 tablet PRN Reason: pain Referrals: ERNESTO TSE MD [Staff Physician] - 3-5 Days Forms: Work/School Release Form(ED) Time of Disposition: 04:31
== END 2019-02-16 04:55 | disposition home or self-care (01) ==
LOC: ED 02:59
DX: S96.911A Strain of unspecified muscle and tendon at ankle and foot level, right foot, initial encounter (principal); I10 Essential (primary) hypertension; E11.9 Type 2 diabetes mellitus without complications; E78.00 Pure hypercholesterolemia, unspecified; F17.200 Nicotine dependence, unspecified, uncomplicated; Z79.899 Other long term (current) drug therapy; X50.1XXA Overexertion from prolonged static or awkward postures, initial encounter; Y93.01 Activity, walking, marching and hiking; Y92.89 Other specified places as the place of occurrence of the external cause; Y99.8 Other external cause status

== ENCOUNTER 2019-11-30 19:06 | Emergency (ER) | payer SELFPAY ==
[2019-11-30] MEDS ORDERED: ASPIRIN 325 MG TAB PO ONE (19:37)
--- NOTE | 2019-11-30 20:07 | XRay Report ---
CHEST 2 VIEWS INDICATION / CLINICAL INFORMATION: MAIN: Chest Pain; CP x 30min, light headedness. COMPARISON: None available. FINDINGS: SUPPORT DEVICES: None. HEART / MEDIASTINUM: No significant abnormality. LUNGS / PLEURA: No significant pulmonary or pleural abnormality. No pneumothorax. ADDITIONAL FINDINGS: No significant additional findings. IMPRESSION: 1. No acute findings. Signer Name: Bobo Benitez MD Signed: 11/30/2019 8:03 PM Workstation Name: [id number]
[2019-11-30 20:28] LABS: Basophils # (Auto) 0.1 K/mm3 (0.0-0.1); Basophils % (Auto) 1.4 % (0.0-1.8); Eosinophils # (Auto) 0.2 K/mm3 (0.0-0.4); Eosinophils % (Auto) 2.6 % (0.0-4.3); Hematocrit 46.7 % (35.5-45.6); Hemoglobin 15.6 gm/dl (11.8-15.2); Lymphocytes # (Auto) 2.9 K/mm3 (1.2-5.4); Lymphocytes % (Auto) 38.8 % (13.4-35.0); Mean Corpuscular HGB Conc 33 % (32-34); Mean Corpuscular Volume 86 fl (84-94); Monocytes # (Auto) 0.6 K/mm3 (0.0-0.8); Monocytes % (Auto) 8.1 % (0.0-7.3); Platelet Count 306 K/mm3 (140-440); Red Blood Count 5.45 M/mm3 (3.65-5.03); Red Cell Distribution Width 13.6 % (13.2-15.2)
[2019-11-30 20:43] LABS: BUN/Creatinine Ratio 7; Blood Urea Nitrogen 7 mg/dL (9-20); Calcium 9.7 mg/dL (8.4-10.2); Hemolysis Index 3
[2019-11-30] MEDS ORDERED: KETOROLAC 30 MG/1 ML INJ IM ONE (20:50)
[2019-11-30] MEDS ORDERED: CYCLOBENZAPRINE 10 MG TAB PO ONE (20:50)
[2019-11-30 21:14] LABS: Alanine Aminotransferase 12 units/L (7-56); Albumin 4.2 g/dL (3.9-5)
[2019-11-30 21:21] LABS: Bilirubin,Direct < 0.2 mg/dL (0-0.2)
--- NOTE | 2019-11-30 23:31 | Emergency Department Report ---
ED Chest Pain HPI - General Chief Complaint: Chest Pain Stated Complaint: CHEST/SHOULDER PAIN Source: patient Mode of arrival: Ambulatory Limitations: No Limitations - History of Present Illness Initial Comments: Patient is a 44-year-old -[place] male with a history of hypertension, chronic back pain, bcf-iytzpcp-spjgbpmnn diabetes and hyperlipidemia who presents to the ED with complaint of acute exacerbation of his chronic back pain and left-sided chest wall pain for the last 4 hours. Patient states that he was laying down when he started feeling the pain in his low back and also the left sided chest wall pain. Patient also complains of nausea and vomiting. Patient states that the pain in the chest wall and lower back gets worse with any movement or palpation. Patient states that he has not taken any medications for pain prior to arrival in the ED. Patient denies fever, chills, abdominal pain, cough, sore throat, headache, dizziness, neck pain, jaw pain, diaphoresis, dysuria, urinary frequency and urgency, headache, heavy lifting, fall, traumatic injury, numbness and tingling or weakness of lower extremities bilaterally, change in vision or syncope and palpitations. MD Complaint: chest pain, other (low back pain) -: Sudden, hour(s) (4) Onset: during rest Pain Location: left chest Pain Radiation: none Severity scale (0 -10): 8 Quality: aching, sharp Consistency: constant Improves With: nothing Worsens With: exertion, palpation, movement re: nausea, vomting. denies: diaphoresis, dyspnea, sense of impending doom Other Symptoms: denies: cough, fever, rash, acid taste in mouth, palpitations, burping, other Treatments Prior to Arrival: none - Related Data On Oral Contraceptives: No Previous Rx's Medication Instructions Recorded Last Taken Type metFORMIN [Glucophage] 500 mg PO BID #60 tablet 03/15/17 Unknown Rx AtorvaSTATin [Lipitor] 20 mg PO QHS #30 tablet 04/16/18 Unknown Rx Pantoprazole [Protonix TAB] 40 mg PO QDAY #30 tablet 04/16/18 Unknown Rx Ibuprofen [Motrin 800 MG tab] 800 mg PO Q8HR PRN #10 tablet 05/04/18 Unknown Rx Nicotine [Habitrol] 21 mg TD QDAY #30 patch 06/09/18 Unknown Rx Cyclobenzaprine HCl [Flexeril 5 MG 5 mg PO TID PRN #21 tab 02/15/19 Unknown Rx TAB] Naproxen [Naprosyn] 500 mg PO BID #14 tablet 02/15/19 Unknown Rx Cyclobenzaprine [Flexeril 10 MG 10 mg PO Q8H PRN #21 tablet 12/01/19 Unknown Rx TAB] Naproxen [Naprosyn TAB] 500 mg PO BID PRN #30 tablet 12/01/19 Unknown Rx Allergies Allergy/AdvReac Type Severity Reaction Status Date / Time No Known Allergies Allergy Unverified 11/30/19 19:36 Heart Score - HEART Score History: Slightly suspicious EKG: Normal Age: < 45 Risk factors: > 3 risk factors or hx of atherosclerotic disease Troponin: < normal limit HEART Score: 2 - Critical Actions Critical Actions: 0-3 pts:0.9-1.7%risk of adverse cardiac event.Candidate for discharge ED Review of Systems ROS: Stated complaint: CHEST/SHOULDER PAIN Other details as noted in HPI Constitutional: denies: chills, fever Eyes: denies: eye pain, eye discharge, vision change ENT: denies: ear pain, throat pain Respiratory: denies: cough, shortness of breath, wheezing Cardiovascular: chest pain (left sided chest pain). denies: palpitations Endocrine: no symptoms reported Gastrointestinal: nausea, vomiting. denies: abdominal pain, diarrhea Genitourinary: denies: urgency, dysuria Musculoskeletal: back pain (low back pain). denies: joint swelling, arthralgia Skin: denies: rash, lesions Neurological: denies: headache, weakness, paresthesias Psychiatric: denies: anxiety, depression Hematological/Lymphatic: denies: easy bleeding, easy bruising ED Past Medical Hx - Past Medical History Hx Hypertension: Yes Hx Congestive Heart Failure: No Hx Diabetes: Yes Hx Asthma: No Hx COPD: No Hx HIV: No Additional medical history: High Cholesterol - Social History Smoking Status: Current Every Day Smoker Substance Use Type: None - Medications Home Medications: Home Medications Medication Instructions Recorded Confirmed Last Taken Type metFORMIN [Glucophage] 500 mg PO BID #60 tablet 03/15/17 04/15/18 Unknown Rx AtorvaSTATin [Lipitor] 20 mg PO QHS #30 tablet 04/16/18 Unknown Rx Pantoprazole [Protonix TAB] 40 mg PO QDAY #30 tablet 04/16/18 Unknown Rx Ibuprofen [Motrin 800 MG tab] 800 mg PO Q8HR PRN #10 tablet 05/04/18 Unknown Rx Nicotine [Habitrol] 21 mg TD QDAY #30 patch 06/09/18 Unknown Rx Cyclobenzaprine HCl [Flexeril 5 MG 5 mg PO TID PRN #21 tab 02/15/19 Unknown Rx TAB] Naproxen [Naprosyn] 500 mg PO BID #14 tablet 02/15/19 Unknown Rx Cyclobenzaprine [Flexeril 10 MG 10 mg PO Q8H PRN #21 tablet 12/01/19 Unknown Rx TAB] Naproxen [Naprosyn TAB] 500 mg PO BID PRN #30 tablet 12/01/19 Unknown Rx ED Physical Exam - General Limitations: No Limitations General appearance: alert, in no apparent distress - Head Head exam: Present: atraumatic, normocephalic, normal inspection - Eye Eye exam: Present: normal appearance, PERRL, EOMI Pupils: Present: normal accommodation - ENT ENT exam: Present: normal exam, normal orophraynx, mucous membranes moist, TM's normal bilaterally, normal external ear exam - Neck Neck exam: Present: normal inspection, full ROM. Absent: tenderness, lymphadenopathy - Respiratory Respiratory exam: Present: normal lung sounds bilaterally, chest wall tenderness (Palpable reproducible diffuse chest wall tenderness worse on the left chest wall). Absent: respiratory distress, wheezes, rales, rhonchi, stridor, accessory muscle use, decreased breath sounds - Cardiovascular Cardiovascular Exam: Present: normal rhythm, tachycardia, normal heart sounds. Absent: systolic murmur, diastolic murmur, rubs, gallop - GI/Abdominal GI/Abdominal exam: Present: soft, normal bowel sounds. Absent: tenderness, guarding, rebound, hyperactive bowel sounds, hypoactive bowel sounds, mass - Extremities Exam Extremities exam: Present: normal inspection, full ROM, normal capillary refill. Absent: tenderness - Back Exam Back exam: Present: normal inspection, full ROM, tenderness (Palpable lumbosacral paraspinal musculoskeletal tenderness), muscle spasm, paraspinal tenderness. Absent: CVA tenderness (R), CVA tenderness (L), vertebral tenderness - Neurological Exam Neurological exam: Present: alert, oriented X3, CN II-XII intact, normal gait, reflexes normal - Psychiatric Psychiatric exam: Present: normal affect, normal mood - Skin Skin exam: Present: warm, dry, intact, normal color. Absent: rash ED Course Vital Signs 11/30/19 19:36 Temperature 99.7 F H Pulse Rate 106 H Respiratory 18 Rate Blood Pressure 146/89 O2 Sat by Pulse 98 Oximetry EMERSON score - Emerson Score Age > 65: (0) No Aspirin use within the Past 7 Days: (0) No 3 or more CAD Risk Factors: (1) Yes 2 or more Angina events in past 24 hrs: (0) No Known CAD with more than 50% Stenosis: (0) No Elevated Cardiac Markers: (0) No ST Deviation Greater than 0.5mm: (0) No EMERSON Score: 1 ED Medical Decision Making - Lab Data Result diagrams: 11/30/19 19:47 11/30/19 19:47 - EKG Data EKG shows normal: sinus rhythm Rate: normal - EKG Data Interpretation: normal EKG 12/01/19 01:02 The initial EKG shows normal sinus rhythm with ventricular rate of [address] or T wave abnormalities. Repeat EKG after 3-hour troponin also showed normal sinus rhythm with ventricular rate of [address] or T wave abnormalities - Radiology Data Radiology results: report reviewed, image reviewed Findings [facility] [address] [place] [address] XRay Report Signed Patient: AHMET MATOS MR#: [id number] 94 : 1975 Acct:[id number] Age/Sex: 44 / M ADM Date: 11/30/19 Loc: ED Attending Dr: Ordering Physician: ED MD JACQUELINE Date of Service: 11/30/19 Procedure(s): XR chest routine 2V Accession Number(s): [id number] cc: ED MD JACQUELINE Fluoro Time In Minutes: CHEST 2 VIEWS INDICATION / CLINICAL INFORMATION: MAIN: Chest Pain; CP x 30min, light headedness. COMPARISON: None available. FINDINGS: SUPPORT DEVICES: None. HEART / MEDIASTINUM: No significant abnormality. LUNGS / PLEURA: No significant pulmonary or pleural abnormality. No pneumothorax. ADDITIONAL FINDINGS: No significant additional findings. IMPRESSION: 1. No acute findings. Signer Name: Bobo Benitez MD Signed: 11/30/2019 8:03 PM Workstation Name: [id number] Transcribed By: BC Dictated By: Bobo Benitez MD Electronically Authenticated By: Bobo Benitez MD Signed Date/Time: 11/30/192002 DD/ 02 TD/TT: - Medical Decision Making This is a 44-year-old -[place] male with a history of hypertension, chronic back pain, nfe-tiakoyg-uncpftxrz diabetes and hyperlipidemia who pr esents to the ED with complaint of acute exacerbation of his chronic back pain and left-sided chest wall pain for the last 4 hours. Patient states that he was laying down when he started feeling the pain in his low back and also the left sided chest wall pain. Patient also complains of nausea and vomiting. Patient states that the pain in the chest wall and lower back gets worse with any movement or palpation. Patient states that he has not taken any medications for pain prior to arrival in the ED. in the ED, patient is alert and oriented x3 and is not in distress, resting comfortably in the bed in no distress. Patient was treated for pain and also given aspirin in the ED. Initial EKG shows normal sinus rhythm with a ventricular rate of [address] or T wave abnormalities. Repeat EKG with repeat 3-hour troponin showed normal sinus rhythm with ventricular rate of [address] or T wave abnormalities. Chest x-ray shows no acute cardiopulmonary abnormalities or pneumonitis. Physical exam reproduces chest wall tenderness by palpation as well as lumbosacral paraspinal musculoskeletal tenderness to palpation. All lab test results were reviewed including the initial and repeat troponin levels which were all nonactionable. On reevaluation, patient's pain is well controlled medications. Patient vital signs are stable. Although patient has a heart score of 2 due to his risk factors for coronary artery disease, patient's current symptoms are likely due to musculoskeletal muscle strain since the the chest wall pain and the lower back pain are reproducible on physical exam. All lab test results including initial and repeat troponin levels as well as chest x-ray and EKG all show no acute cardiopulmonary abnormalities. Patient was therefore discharged home on pain medications and muscle relaxants for his chronic low back pain and muscle strain of his chest wall and was advised to follow-up with his primary care physician in 5 to 7 days for reevaluation. Patient was also advised to return to the ED immediately if symptoms get worse. - Differential Diagnosis CAD; Pneumonia; Muscle strain; Costochondritis; Muscle spasm of back Critical care attestation.: If time is entered above; I have spent that time in minutes in the direct care of this critically ill patient, excluding procedure time. ED Disposition Clinical Impression: Left-sided chest wall pain, Muscle strain of anterior chest wall, Spasm of muscle of lower back Disposition: TO HOME OR SELFCARE Is pt being admited?: No Does the pt Need Aspirin: No Condition: Stable Instructions: Chest Pain (ED), Muscle Strain (ED), Costochondritis (ED), Chronic Back Pain (ED) Additional Instructions: All your lab test results are unremarkable. Chest x-ray shows no acute cardiopulmonary abnormalities or pneumonitis. Your symptoms are likely due to muscle strain of your chest wall or muscle spasm of your low back based on physical exam findings of reproducible with pain. Therefore take medications with food, drink plenty of fluids and follow-up with your primary care physician in 3 to 5 days for reevaluation. Return to the ED immediately if symptoms get worse. Prescriptions: Cyclobenzaprine [Flexeril 10 MG TAB] 10 mg PO Q8H PRN #21 tablet PRN Reason: Muscle Spasm Naproxen [Naprosyn TAB] 500 mg PO BID PRN #30 tablet PRN Reason: pain Referrals: FRANKLYN CONTRERAS MD [Staff Physician] - 3-5 Days Time of Disposition: 00:41 Print Language: ERITREAN
[2019-12-01 00:36] VITALS: BP 146/86
== END 2019-12-01 01:04 | disposition home or self-care (01) ==
LOC: ED 19:06
DX: S29.011A Strain of muscle and tendon of front wall of thorax, initial encounter (principal); M62.830 Muscle spasm of back; I10 Essential (primary) hypertension; F17.200 Nicotine dependence, unspecified, uncomplicated; E11.9 Type 2 diabetes mellitus without complications; Z79.899 Other long term (current) drug therapy; W19.XXXA Unspecified fall, initial encounter; Y93.89 Activity, other specified; Y92.89 Other specified places as the place of occurrence of the external cause; Y99.8 Other external cause status
CPT/HCPCS: 36415; 71046; 80048; 80076; 84484; 85025; 93005; 96372; 99284; J1885

== ENCOUNTER 2021-05-13 13:06 | Emergency (ER) | payer SELFPAY ==
--- NOTE | 2021-05-13 13:43 | Emergency Department Report ---
ED Back Pain/Injury HPI - General Chief Complaint: Back Pain/Injury Stated Complaint: BACK PAIN Time Seen by Provider: 05/13/21 13:34 Source: patient Limitations: No Limitations - History of Present Illness Initial Comments: The patient was evaluated in the emergency department for symptoms described in the history of present illness. He/she was evaluated in the context of the global COVID-19 pandemic, which necessitated consideration that the patient might be at risk for infection with the virus that causes COVID-19. Institutional protocols and algorithms that pertain to the evaluation of patients at risk for COVID-19 are in a state of rapid change based on information released by regulatory bodies including the CDC and federal and state organizations. These policies and algorithms were followed during the patient's care in the emergency department. Please note that these policies, procedures and recommendations changed on a rapid basis. 45-year-old -[place] male with a chronic history of back pain with sciatica states that he has a history of a pinched nerve presents to the emergency room stating that he was moving furniture yesterday and started to have pain. Patient denies any urinary or bowel incontinent denies any radiation of pain denies any testicular pain has not been on steroids does not do IV drug use no trauma no unintentional weight loss no history of any cancers. Patient has not taken anything for pain. Patient states that where he lives that he can sometimes get ibuprofen as he does not have any money for bwrh-hrw-qbhffgo meds. Complaint: back pain Onset/Timin -: days(s) Similar Symptoms Previously: Yes Place: work Radiation: none Severity: moderate Severity scale (0 -10): 7 Quality: sharp, aching Consistency: intermittent Improves With: none Worsens With: walking Context: while lifting, turning/twisting Associated Symptoms: denies other symptoms - Related Data Previous Rx's Medication Instructions Recorded Last Taken Type metFORMIN [Glucophage] 500 mg PO BID #60 tablet 03/15/17 Unknown Rx AtorvaSTATin [Lipitor] 20 mg PO QHS #30 tablet 04/16/18 Unknown Rx Pantoprazole [Protonix TAB] 40 mg PO QDAY #30 tablet 04/16/18 Unknown Rx Nicotine [Habitrol] 21 mg TD QDAY #30 patch 06/09/18 Unknown Rx Cyclobenzaprine HCl [Flexeril 5 MG 5 mg PO TID PRN #21 tab 02/15/19 Unknown Rx TAB] Naproxen [Naprosyn] 500 mg PO BID #14 tablet 02/15/19 Unknown Rx Cyclobenzaprine [Flexeril 10 MG 10 mg PO Q8H PRN #21 tablet 12/01/19 Unknown Rx TAB] Naproxen [Naprosyn TAB] 500 mg PO BID PRN #30 tablet 12/01/19 Unknown Rx Ibuprofen [Motrin 800 MG tab] 800 mg PO Q8HR PRN #30 tablet 05/13/21 Unknown Rx Allergies Allergy/AdvReac Type Severity Reaction Status Date / Time No Known Allergies Allergy Verified 05/13/21 13:13 ED Review of Systems ROS: Stated complaint: BACK PAIN Other details as noted in HPI Comment: All other systems reviewed and negative ED Past Medical Hx - Past Medical History Hx Hypertension: Yes Hx Congestive Heart Failure: No Hx Diabetes: Yes Hx Asthma: No Hx COPD: No Hx HIV: No Additional medical history: High Cholesterol - Social History Smoking Status: Current Every Day Smoker Substance Use Type: None - Medications Home Medications: Home Medications Medication Instructions Recorded Confirmed Last Taken Type metFORMIN [Glucophage] 500 mg PO BID #60 tablet 03/15/17 04/15/18 Unknown Rx AtorvaSTATin [Lipitor] 20 mg PO QHS #30 tablet 04/16/18 Unknown Rx Pantoprazole [Protonix TAB] 40 mg PO QDAY #30 tablet 04/16/18 Unknown Rx Nicotine [Habitrol] 21 mg TD QDAY #30 patch 06/09/18 Unknown Rx Cyclobenzaprine HCl [Flexeril 5 MG 5 mg PO TID PRN #21 tab 02/15/19 Unknown Rx TAB] Naproxen [Naprosyn] 500 mg PO BID #14 tablet 02/15/19 Unknown Rx Cyclobenzaprine [Flexeril 10 MG 10 mg PO Q8H PRN #21 tablet 12/01/19 Unknown Rx TAB] Naproxen [Naprosyn TAB] 500 mg PO BID PRN #30 tablet 12/01/19 Unknown Rx Ibuprofen [Motrin 800 MG tab] 800 mg PO Q8HR PRN #30 tablet 05/13/21 Unknown Rx ED Physical Exam - General Limitations: No Limitations General appearance: alert, in no apparent distress - Head Head exam: Present: atraumatic, normocephalic - Eye Eye exam: Present: normal appearance - ENT ENT exam: Present: mucous membranes moist - Neck Neck exam: Present: normal inspection - Respiratory Respiratory exam: Present: normal lung sounds bilaterally. Absent: respiratory distress - Cardiovascular Cardiovascular Exam: Present: regular rate, normal rhythm. Absent: systolic murmur, diastolic murmur, rubs, gallop - GI/Abdominal GI/Abdominal exam: Present: soft, normal bowel sounds - Rectal Rectal exam: Present: deferred - Extremities Exam Extremities exam: Present: normal inspection - Back Exam Back exam: Present: normal inspection, full ROM, muscle spasm - Neurological Exam Neurological exam: Present: alert, oriented X3, normal gait - Psychiatric Psychiatric exam: Present: normal affect, normal mood - Skin Skin exam: Present: warm, dry, intact, normal color. Absent: rash ED Medical Decision Making - Medical Decision Making 45-year-old -[place] male with a chronic history of back pain with sciatica states that he has a history of a pinched nerve presents to the emergency room stating that he was moving furniture yesterday and started to have pain. Patient denies any urinary or bowel incontinent denies any radiation of pain denies any testicular pain has not been on steroids does not do IV drug use no trauma no unintentional weight loss no history of any cancers. Patient has not taken anything for pain. Patient states that where he lives that he can sometimes get ibuprofen as he does not have any money for soiz-bwv-ipmenlt meds. Discussed with patient placement ibuprofen 3 times a day and referral to a back specialist. Patient be given a work excuse. Critical care attestation.: If time is entered above; I have spent that time in minutes in the direct care of this critically ill patient, excluding procedure time. ED Disposition Clinical Impression: Exacerbation of chronic back pain Disposition: 01 HOME / SELF CARE / HOMELESS Is pt being admited?: No Does the pt Need Aspirin: No Condition: Stable Instructions: Back Injury Prevention, Owzd-un-Zzln, Chronic Back Pain, Vmvr-ko-Yovs Additional Instructions: Please take pain medication as prescribed breakfast lunch and dinner. Increase your fluid intake to be sure to eat when taking medication. Can try weqv-zek-mkmytdl back liniment such as Aspercreme Voltaren gel or [place] balm. Follow-up with a primary care provider and back specialist. Prescriptions: Ibuprofen [Motrin 800 MG tab] 800 mg PO Q8HR PRN #30 tablet PRN Reason: Pain , Severe (7-10) Referrals: BRETT ALBA II, MD [Staff Physician] - 3-5 Days Forms: Work/School Release Form(ED) Time of Disposition: 13:44
== END 2021-05-13 14:36 | disposition home or self-care (01) ==
LOC: ED 13:06
DX: G89.29 Other chronic pain (principal); I10 Essential (primary) hypertension; E11.9 Type 2 diabetes mellitus without complications; F17.200 Nicotine dependence, unspecified, uncomplicated; E78.00 Pure hypercholesterolemia, unspecified; Z79.84 Long term (current) use of oral hypoglycemic drugs; Z79.899 Other long term (current) drug therapy
CPT/HCPCS: 99281